=== PATIENT | female | born 1955 | race African-American/Black ===

== ENCOUNTER 2019-02-09 11:19 | Emergency (ER) | payer MEDICARE ==
--- OUTSIDE RECORDS SUMMARY | 2019-02-09 11:22 | XMS REPORT ---
:1955 [facility] [address] [place] [address] Dr. Mcintyre [address] [place] [id number] Care Team Providers Name Role Phone Unavailable Unavailable Unavailable Problems This patient has no known problems. Allergies, Adverse Reactions, Alerts This patient has no known allergies or adverse reactions. Medications This patient has no known medications.
--- NOTE | 2019-02-09 12:53 | ER ---
Nurse's Notes [facility] Name: Mel Ferrari Age: 63 yrs Sex: Female : 1955 Arrival Date: 02/09/2019 Time: 11:24 Bed 20 Private MD: Amalia Quintanilla C Diagnosis: Radiculopathy, lumbar region;Dental caries Presentation: 02/09 11:43 Presenting complaint: Patient states: left leg pain X1 week, pain radiates from back of iw thigh to knee, also is having pain to her wisdom teeth. Transition of care: patient was not received from another setting of care. Onset of symptoms was February 06, 2019. Risk Assessment: Do you want to hurt yourself or someone else? Patient reports no desire to harm self or others. Initial Sepsis Screen: Does the patient meet any 2 criteria? No. Patient's initial sepsis screen is negative. Does the patient have a suspected source of infection? No. Patient's initial sepsis screen is negative. Care prior to arrival: None. 11:43 Method Of Arrival: Wheelchair iw 11:43 Acuity: NICK 3 iw Historical: - Allergies: 11:46 PENICILLINS; iw 11:46 Sudafed; iw - PMHx: 11:46 Diabetes - NIDDM; TIA; Hypertension; iw - PSHx: 11:46 Tubal ligation; Carotid surgery; iw - Immunization history:: Adult Immunizations up to date. - Social history:: Smoking status: Patient uses tobacco products, smokes one-half pack cigarettes per day. - Ebola Screening: : Patient negative for fever greater than or equal to 101.5 degrees Fahrenheit, and additional compatible Ebola Virus Disease symptoms Patient denies exposure to infectious person Patient denies travel to an Ebola-affected area in the 21 days before illness onset No symptoms or risks identified at this time. Screenin:38 Abuse screen: Denies threats or abuse. Nutritional screening: No deficits noted. em Tuberculosis screening: No symptoms or risk factors identified. Fall Risk None identified. Assessment: 12:37 General: Appears in no apparent distress. comfortable, Behavior is calm, cooperative. em Pain: Complains of pain in left leg Pain currently is 10 out of 10 on a pain scale. Quality of pain is described as radiating. Neuro: Level of Consciousness is awake, alert, obeys commands, Oriented to person, place, time, situation. Cardiovascular: Capillary refill < 3 seconds Patient's skin is warm and dry. Respiratory: Airway is patent Respiratory effort is even, unlabored, Respiratory pattern is regular, symmetrical. EENT: Poor dentition noted. Derm: Skin is intact, is healthy with good turgor, Skin is pink, warm \T\ dry. Musculoskeletal: Capillary refill < 3 seconds, Range of motion: intact in all extremities. 12:50 Reassessment: Patient appears in no apparent distress at this time. I agree with above iw assessment by Eric Real LVN. Vital Signs: 11:47 BP 118 / 81; Pulse 76; Resp 16; Temp 98.2; Pulse Ox 98% on R/A; Weight 77.11 kg; Height iw 5 ft. 2 in. (157.48 cm); Pain 10/10; 11:47 Body Mass Index 31.09 (77.11 kg, 157.48 cm) iw ED Course: 11:24 Patient arrived in ED. mr 11:24 Amalia Quintanilla MD is Private Physician. mr 11:45 Triage completed. iw 11:47 Arm band placed on. iw 12:19 Linda Leong FNP-C is PHCP. snw 12:19 Thomas Modi MD is Attending Physician. snw 12:38 Eric Real LVN is Primary Nurse. em 12:38 Patient has correct armband on for positive identification. Placed in gown. Bed in low em position. Call light in reach. 12:49 Amalia Quintanilla MD is Referral Physician. snw 13:06 No provider procedures requiring assistance completed. Patient did not have IV access em during this emergency room visit. Administered Medications: No medications were administered Outcome: 12:52 Discharge ordered by . snw 13:06 Discharged to home ambulatory. em 13:06 Condition: good 13:06 Discharge instructions given to patient, Instructed on discharge instructions, follow up and referral plans. medication usage, Demonstrated understanding of instructions, follow-up care, medications, Prescriptions given X 1. 13:07 Patient left the ED. em Signatures: Linda Leong FNP-C COURT REPORTER-Kimberlyw Ene Gusman mr Eric Real LVN KEY ACCOUNT MANAGER em Rebecca Ramírez RN RN iw
--- NOTE | 2019-02-09 12:53 | EDPHYS ---
Physician Documentation [facility] Name: Mel Ferrari Age: 63 yrs Sex: Female : 1955 Arrival Date: 02/09/2019 Time: 11:24 Bed 20 Private MD: Amalia Quintanilla C ED Physician Thomas Modi HPI: 02/09 17:49 This 63 yrs old Black Female presents to ER via Wheelchair with complaints of Leg Pain, snw Toothache. 17:49 The patient presents with decreased range of motion, pain, that is acute. The snw complaints affect the left hip and left hamstring. Context: The problem was sustained at home, resulted from an unknown cause, the patient can fully bear weight, the patient is able to ambulate, pt states she felt increased pain while doing "diabetic exercises/stretches". Onset: The symptoms/episode began/occurred suddenly, 2 day(s) ago, and became persistent. Associated signs and symptoms: The patient has no apparent associated signs or symptoms. Treatment prior to arrival includes: no previous treatment. Severity of symptoms: At their worst the symptoms were moderate. The patient has experienced similar episodes in the past. The patient has been recently seen by a physician: the patient's primary care provider, Dr. Quintanilla. pt states Dr. Quintanilla ordered an x-ray of the lumbar spine a few weeks ago but pt is not aware of results. Pt states she has wisdom teeth "issues", pt to have extraction but needs to coordinate care secondary to chronic conditions/medications. Pt states she hurts and is out of her pain medications. Pt has been taking Ruston. Discussed triplicate status for Ruston and T#3 is strongest medication to rx from the ED. Pt states she wants the T#3. Historical: - Allergies: 11:46 PENICILLINS; iw 11:46 Sudafed; iw - PMHx: 11:46 Diabetes - NIDDM; TIA; Hypertension; iw - PSHx: 11:46 Tubal ligation; Carotid surgery; iw - Immunization history:: Adult Immunizations up to date. - Social history:: Smoking status: Patient uses tobacco products, smokes one-half pack cigarettes per day. - Ebola Screening: : Patient negative for fever greater than or equal to 101.5 degrees Fahrenheit, and additional compatible Ebola Virus Disease symptoms Patient denies exposure to infectious person Patient denies travel to an Ebola-affected area in the 21 days before illness onset No symptoms or risks identified at this time. ROS: 17:53 Constitutional: Negative for fever, chills, and weight loss, Eyes: Negative for injury, snw pain, redness, and discharge, Neck: Negative for injury, pain, and swelling, Cardiovascular: Negative for chest pain, palpitations, and edema, Respiratory: Negative for shortness of breath, cough, wheezing, and pleuritic chest pain, Abdomen/GI: Negative for abdominal pain, nausea, vomiting, diarrhea, and constipation, Back: Negative for injury and pain, : Negative for injury, bleeding, discharge, and swelling, Skin: Negative for injury, rash, and discoloration, Neuro: Negative for headache, weakness, numbness, tingling, and seizure. 17:53 ENT: Positive for Teeth pain 17:53 MS/extremity: Positive for left posterior thigh pain. Exam: 17:53 Constitutional: This is a well developed, well nourished patient who is awake, alert, snw and in no acute distress. Head/Face: Normocephalic, atraumatic. Eyes: Pupils equal round and reactive to light, extra-ocular motions intact. Lids and lashes normal. Conjunctiva and sclera are non-icteric and not injected. Cornea within normal limits. Periorbital areas with no swelling, redness, or edema. Neck: Trachea midline, no thyromegaly or masses palpated, and no cervical lymphadenopathy. Supple, full range of motion without nuchal rigidity, or vertebral point tenderness. No Meningismus. Chest/axilla: Normal chest wall appearance and motion. Nontender with no deformity. No lesions are appreciated. Cardiovascular: Regular rate and rhythm with a normal S1 and S2. No gallops, murmurs, or rubs. Normal PMI, no JVD. No pulse deficits. Respiratory: Lungs have equal breath sounds bilaterally, clear to auscultation and percussion. No rales, rhonchi or wheezes noted. No increased work of breathing, no retractions or nasal flaring. Abdomen/GI: Soft, non-tender, with normal bowel sounds. No distension or tympany. No guarding or rebound. No evidence of tenderness throughout. Back: No spinal tenderness. No costovertebral tenderness. Full range of motion. Skin: Warm, dry with normal turgor. Normal color with no rashes, no lesions, and no evidence of cellulitis. MS/ Extremity: Pulses equal, no cyanosis. Neurovascular intact. Full, normal range of motion. Neuro: Awake and alert, GCS 15, oriented to person, place, time, and situation. Cranial nerves II-XII grossly intact. Motor strength 5/5 in all extremities. Sensory grossly intact. Cerebellar exam normal. Normal gait. Psych: Awake, alert, with orientation to person, place and time. Behavior, mood, and affect are within normal limits. 17:53 ENT: Dental exam: dental caries, that is moderate, diffusely, specifically in the upper right third molar (#1), upper right second molar (#2), upper right first molar (#3), upper left first molar (#14), upper left second molar (#15), upper left third molar (#16), lower left second molar (#18) and lower right second molar (#31). Vital Signs: 11:47 BP 118 / 81; Pulse 76; Resp 16; Temp 98.2; Pulse Ox 98% on R/A; Weight 77.11 kg; Height iw 5 ft. 2 in. (157.48 cm); Pain 10/10; 11:47 Body Mass Index 31.09 (77.11 kg, 157.48 cm) iw MDM: 12:20 Patient medically screened. snw 17:56 Data reviewed: vital signs, nurses notes. Data interpreted: Pulse oximetry: on room air snw is 98 %. Interpretation: normal. Counseling: I had a detailed discussion with the patient and/or guardian regarding: the historical points, exam findings, and any diagnostic results supporting the discharge/admit diagnosis, the presence of at least one elevated blood pressure reading (>120/80) during this emergency department visit, the need for outpatient follow up, to return to the emergency department if symptoms worsen or persist or if there are any questions or concerns that arise at home. Special discussion: I have referred the patient to see his PCP for further evaluation of high blood pressure. Based on the history and exam findings, there is no indication for further emergent testing or inpatient evaluation. I discussed with the patient/guardian the need to see a dentist for further evaluation of the symptoms. I discussed with the patient/guardian the need to see the primary care provider for further evaluation of the symptoms. Administered Medications: No medications were administered Disposition: 02/09/19 12:52 Discharged to Home. Impression: Radiculopathy, lumbar region, Dental caries. - Condition is Stable. - Discharge Instructions: Dental Pain, Lumbosacral Radiculopathy, Diet and Dental Disease. - Prescriptions for Tylenol- Codeine #3 300-30 mg Oral Tablet - take 2 tablets by ORAL route every 6 hours As needed; 20 tablet. - Medication Reconciliation Form, Thank You Letter, Antibiotic Education, Prescription Opioid Use form. - Follow up: Amalia Quintanilla MD; When: 1 - 2 days; Reason: Recheck today's complaints, Continuance of care, Re-evaluation by your physician. Follow up: Emergency Department; When: As needed; Reason: Worsening of condition. Addendum: 02/11/2019 08:02 Co-signature as Attending Physician, Thomas Modi MD I agree with the assessment and k dr plan of care. Signatures: Thomas Modi MD MD [facility] Linda Leong, SPRAY GUN STRIPER-C SPRAY GUN STRIPER-Csnw Eric Real, PORTABLE TRACKMAN PORTABLE TRACKMAN em Rebecca Ramírez, RN RN iw Corrections: (The following items were deleted from the chart) 02/09 13:07 12:52 02/09/2019 12:52 Discharged to Home. Impression: Radiculopathy, lumbar region; em Dental caries. Condition is Stable. Forms are Medication Reconciliation Form, Thank You Letter, Antibiotic Education, Prescription Opioid Use. Follow up: Amalia Quintanilla; When: 1 - 2 days; Reason: Recheck today's complaints, Continuance of care, Re-evaluation by your physician. Follow up: Emergency Department; When: As needed; Reason: Worsening of condition. snw
[2019-02-09 13:13] VITALS: BP 118/81; TEMP 98.2; O2SAT 98
== END 2019-02-09 13:07 | disposition home or self-care (01) ==
LOC: ER 11:19
DX: M54.16 Radiculopathy, lumbar region (principal); K02.9 Dental caries, unspecified; Z88.0 Allergy status to penicillin; F17.210 Nicotine dependence, cigarettes, uncomplicated
CPT/HCPCS: 99282

== ENCOUNTER 2020-07-09 10:33 | Emergency (ER) | payer OTHER ==
--- OUTSIDE RECORDS SUMMARY | 2020-07-09 10:41 | XMS REPORT | Continuity of Care Document ---
:1955 Author Organization [facility] t Address [address] [place] [address] Care Team Providers Name Role Phone Doctor Unassigned, Name Attending Clinician Unavailable Gloria Rudolph Attending Clinician Problems This patient has no known problems. Allergies, Adverse Reactions, Alerts This patient has no known allergies or adverse reactions. Medications This patient has no known medications. Procedures This patient has no known procedures. Encounters Start End Encounter Admission Attending Care Care Encounter Source Date/Time Date/Time Type Type Clinicians Facility Department ID 2020-04-23 2020-04-23 Orders Doctor KEARNEY [id number] 00:00:00 00:00:00 Only Unassigned, [place] [id number] [place] [id number] 2020-03-16 2020-03-16 [facility] Paul Rudolph [facility] [id number] 13:15:00 23:59:00 Encounter J Ruby [id number] [place] [id number] [place] [id number] 2020-03-16 2020-03-16 Orders Doctor CHRISTEL [id number] 00:00:00 00:00:00 Only UnassignedCHING [id number] [place] [id number] Results This patient has no known results.
--- OUTSIDE RECORDS SUMMARY | 2020-07-09 10:41 | XMS REPORT | Summary of Care ---
:1955 Author Organization [facility] Address [address] [place] [address] Care Team Providers Name Role Phone Arcadio Quintanilla Primary Care Provider Encounter Details Date Type Department Care Team Description 04/23/2020 Orders Only [facility] Doctor Unassigned, No [address] [facility] [place] [address] [address] [place] [address] Allergies Active Allergy Reactions Severity Noted Date Comments Penicillins Rash 03/21/2012 Pseudoephedrine Hcl Swelling 12/05/2018 Sulfa (Sulfonamide Antibiotics) Rash 2 documented as of this encounter (statuses as of 04/23/2020) Medications Medication Sig Dispensed Refills Start Date End Date Status citalopram (CELEXA) 20 Take 20 mg by 0 Active mg tablet mouth daily. atorvastatin (LIPITOR) Take 1 Tab by 30 Tab 5 06/04/2012 Active 10 mg tabletIndications: mouth at HLD (hyperlipidemia) bedtime. albuterol (VENTOLIN HFA) Inhale 2 Puffs 0 Active 90 mcg/actuation inhaler every 6 (six) hours as needed. fluticasone (FLONASE) 50 Use in each 0 Active mcg/actuation nasal nostril daily. spray levocetirizine (XYZAL) 5 Take 5 mg by 0 Active mg tablet mouth every evening. clopidogrel (PLAVIX) 75 Take 1 Tab by 30 Tab 6 10/17/2012 Active mg tabletIndications: mouth daily. TIA (transient ischemic attack) losartan-hydrochlorothia Take 1 tablet by 2 11/14/19 19 Active zide 50-12.5 mg per mouth daily. tablet gabapentin 400 mg Take 400 mg by 0 Active capsule mouth 3 (three) times daily. meloxicam 7.5 mg tablet Take 7.5 mg by 0 Active mouth daily. metFORMIN 500 mg tablet Take 500 mg by 0 Active mouth 2 (two) times daily with meals. fluticasone Inhale 1 Puff 2 1 Each 11 03/14/2019 A ctive propion-salmeterol (two) times (AIRDUO RESPICLICK) daily. 113-14 mcg/actuation AePBIndications: Chronic cough documented as of this encounter (statuses as of 04/23/2020) Active Problems Problem Noted Date Carotid stenosis, symptomatic w/o infarct 01/17/2013 TIA (transient ischemic attack) 01/17/2013 Carpal tunnel syndrome 06/14/2012 Lumbago 01/17/2012 documented as of this encounter (statuses as of 04/23/2020) Immunizations Name Administration Dates Next Due Influenza Virus Vaccine Quad .5 mL IM 6+ MO 05/26/2019 documented as of this encounter Social History Tobacco Use Types Packs/Day Years Used Date Current Every Day Smoker Cigarettes 0.25 39 Smokeless Tobacco: Never Used Alcohol Use Drinks/Week oz/Week Comments No Sex Assigned at Date Recorded Not on file documented as of this encounter Last Filed Vital Signs Not on filedocumented in this encounter Plan of Treatment Health Maintenance Due Date Last Done Comments Depression Screening 1966 COLON CANCER SCREENING ANNUAL 2004 FIT/FOBT COLON CANCER SCREENING FIT 2004 DNA EVERY 3 YEARS COLON CANCER SCREENING 2004 SIGMOIDOSCOPY EVERY 5 YEARS Breast Cancer Screening 12/24/2012 12/25/2011 (MAMMOGRAM) Medicare Wellness Visit 2019 PNEUMOCOCCAL VACCINES 65+ (1 2019 of 1 - PPSV23) LUNG CANCER SCREEN: 02/13/2020 02/12/2019 Recommended for age 55-80 with 30 + pack year history INFLUENZA VACCINE (#1) 2020 05/26/2019 COLONOSCOPY 06/24/2020 Postponed from 1 10/09/2003 (Patient Does No t Have Time) Colorectal Cancer Screening 06/24/2020 Post poned from 2004 DTaP,Tdap,and Td Vaccines (1 06/24/2020 Pos tponed from 1973 - Tdap) (Patient Does No t Have Time) HEPATITIS C (HCV) SCREEN 06/24/2020 Postpon ed from 1955 (Patient Does No t Have Time) Zoster Recombinant Vaccine 06/24/2020 Postp oned from 2004 (SHINGRIX) (1 of 2) (Patient Rodríguez s Not Have Time) Osteoporosis Screening 03/04/2025 03/04/2015, 03/04/2015 documented as of this encounter Procedures Procedure Name Priority Date/Time Associated Diagnosis Comme nts EXTERNAL PROVIDER Routine 04/23/2020 12:01 AM CDT RECORDS documented in this encounter Results Not on filedocumented in this encounter Insurance Payer Benefit Plan Subscriber ID Effective Phone Address Typ e / Group Dates [facility] [id number] 2018-Pres Medica re Adv HEALTHCARE - MEDICARE ent HMO MANAGED COMPLETE MEDICARE MEDICARE MEDICARE [id number] 2011-Pres [phone] [facility] care PART A & B ent [id number] MIRANDA MONTES [phone] [facility] [id number] 2020-Pre PPO BENEFIT PLAN [place] sent documented as of this encounter Advance Directives Type Date Recorded Patient Clerical Manager Explanati on Advance Directives and Living Will Power of Construction Superintendent 03/02/2015 5:01 PM
--- NOTE | 2020-07-09 11:35 | EDPHYS ---
Physician Documentation [facility] Name: Mel Ferrari Age: 64 yrs Sex: Female : 1955 Arrival Date: 07/09/2020 Time: 10:37 Bed 16 Private MD: ED Physician Thomas Modi HPI: 07/09 11:26 This 64 yrs old Black Female presents to ER via Ambulatory with complaints of Insect cp Bite, Back Pain. 11:26 The patient presents with pain that is acute, with no known mechanism of injury. The cp symptoms are located in the left trapezius, left scapular area and left subscapular area. Onset: The symptoms/episode began/occurred 2-3 days ago. The pain does not radiate. Associated signs and symptoms: Pertinent negatives: abdominal pain, chest pain, fever, numbness, tingling, weakness. Modifying factors: The patient symptoms are alleviated by nothing, the patient symptoms are aggravated by movement, turning torso to left. Historical: - Allergies: 10:49 PENICILLINS; ss 10:49 Sudafed; ss - PMHx: 10:49 Diabetes - NIDDM; Hypertension; TIA; ss - PSHx: 10:49 Tubal ligation; Carotid surgery; ss - Immunization history:: Adult Immunizations up to date. - Social history:: Smoking status: Patient reports the use of cigarette tobacco products, 1/4 ppd. ROS: 11:27 Constitutional: Negative for body aches, chills, fever. cp 11:27 Neck: Negative for pain with movement, pain at rest, stiffness. 11:27 Cardiovascular: Negative for chest pain, palpitations. 11:27 Respiratory: Negative for cough, shortness of breath, wheezing. 11:27 Back: Positive for pain at rest, pain with movement, of the left trapezius, left scapular area and left subscapular area, Negative for injury or acute deformity. 11:27 Skin: Negative for rash. 11:27 Neuro: Negative for numbness, weakness. 11:27 All other systems are negative. Exam: 11:29 Head/Face: Normocephalic, atraumatic. cp 11:29 Constitutional: The patient appears in no acute distress, alert, awake, non-diaphoretic, non-toxic, well developed, well nourished. 11:29 Eyes: Periorbital structures: appear normal, Conjunctiva: normal, no exudate, no injection, Sclera: no appreciated abnormality, Lids and lashes: appear normal, bilaterally. 11:29 ENT: External ear(s): are unremarkable, Nose: is normal, Posterior pharynx: Airway: no evidence of obstruction, patent. 11:29 Chest/axilla: Inspection: normal. 11:29 Cardiovascular: Rate: normal, Rhythm: regular. 11:29 Respiratory: the patient does not display signs of respiratory distress, Respirations: normal, no use of accessory muscles, no retractions, labored breathing, is not present. 11:29 Abdomen/GI: Inspection: abdomen appears normal. 11:29 Back: pain, that is mild, of the left trapezius, left scapular area and left subscapular area, ROM is painful, with rotation to the left, vertebral tenderness, is not appreciated. 11:29 Skin: cellulitis, is not appreciated, no rash present. 11:29 Neuro: Orientation: to person, place \T\ time. Mentation: is normal. Vital Signs: 10:48 BP 147 / 86; Pulse 88; Resp 16; Temp 97.6(TE); Pulse Ox 98% on R/A; Weight 79.83 kg; ss Height 5 ft. 2 in. (157.48 cm); Pain 6/10; 10:48 Body Mass Index 32.19 (79.83 kg, 157.48 cm) ss MDM: 11:26 Patient medically screened. cp 11:30 Differential diagnosis: sprain, strain, herpes zoster, cellulitis, muscle spasm. cp 11:33 Data reviewed: vital signs, nurses notes. cp 11:33 Counseling: I had a detailed discussion with the patient and/or guardian regarding: the cp historical points, exam findings, and any diagnostic results supporting the discharge/admit diagnosis, to return to the emergency department if symptoms worsen or persist or if there are any questions or concerns that arise at home. Administered Medications: No medications were administered Disposition: 11:45 Chart complete. cp 14:32 Co-signature as Attending Physician, Thomas Modi MD I agree with the assessment and kdr plan of care. Disposition: 07/09/20 11:34 Discharged to Home. Impression: Strain of muscle and tendon of back wall of thorax - left. - Condition is Stable. - Discharge Instructions: Back Pain, Adult. - Prescriptions for Lidoderm 5 % Topical adhesive patch,medicated - apply 1 patch by TRANSDERMAL route once daily; 1 box. Cyclobenzaprine 10 mg Oral Tablet - take 1 tablet by ORAL route every 8 hours As needed; 20 tablet. Naprosyn 500 mg Oral Tablet - take 1 tablet by ORAL route 2 times per day take with food; 20 tablet. - Medication Reconciliation Form, Thank You Letter, Antibiotic Education, Prescription Opioid Use form. - Follow up: Private Physician; When: 2 - 3 days; Reason: Recheck today's complaints. - Problem is new. - Symptoms are unchanged. Signatures: Thomas Modi MD MD [facility] Anamaria Valenzuela RN RN ss Joey Calhoun PA PA cp Whit Torres RN RN ca1 Corrections: (The following items were deleted from the chart) 10:50 10:48 Social history: Smoking status: Patient denies any tobacco usage or history of. ssss 11:41 11:34 07/09/2020 11:34 Discharged to Home. Impression: Strain of muscle and tendon of ca1 back wall of thorax - left. Condition is Stable. Forms are Medication Reconciliation Form, Thank You Letter, Antibiotic Education, Prescription Opioid Use. Follow up: Private Physician; When: 2 - 3 days; Reason: Recheck today's complaints. Problem is new. Symptoms are unchanged. cp 07/10 09:36 07/09 11:40 Differential diagnosis: sprain, strain, herpes zoster, cellulitis, muscle cp spasm cp
--- NOTE | 2020-07-09 11:35 | ER ---
Nurse's Notes [facility] Name: Mel Ferrari Age: 64 yrs Sex: Female : 1955 Arrival Date: 07/09/2020 Time: 10:37 Bed 16 Private MD: Diagnosis: Strain of muscle and tendon of back wall of thorax-left Presentation: 07/09 10:48 Chief complaint: Patient states: possible insect bite to L upper back 2-3 days ago. Pt ss reports that since then she has been feeling a little weak. Coronavirus screen: Client denies travel out of the [place] in the last 14 days. Ebola Screen: Patient denies exposure to infectious person. Patient denies travel to an Ebola-affected area in the 21 days before illness onset. Initial Sepsis Screen: Does the patient meet any 2 criteria? No. Patient's initial sepsis screen is negative. Does the patient have a suspected source of infection? No. Patient's initial sepsis screen is negative. Risk Assessment: Do you want to hurt yourself or someone else? Patient reports no desire to harm self or others. Onset of symptoms was July 06, 2020. 10:48 Method Of Arrival: Ambulatory ss 10:48 Acuity: NICK 3 ss Historical: - Allergies: 10:49 PENICILLINS; ss 10:49 Sudafed; ss - PMHx: 10:49 Diabetes - NIDDM; Hypertension; TIA; ss - PSHx: 10:49 Tubal ligation; Carotid surgery; ss - Immunization history:: Adult Immunizations up to date. - Social history:: Smoking status: Patient reports the use of cigarette tobacco products, 1/4 ppd. Screenin:10 Abuse screen: Denies threats or abuse. Denies injuries from another. Nutritional ca1 screening: No deficits noted. Tuberculosis screening: No symptoms or risk factors identified. Fall Risk None identified. Assessment: 11:10 General: Appears in no apparent distress. comfortable, Behavior is calm, cooperative, ca1 appropriate for age. Pain: Complains of pain in left subscapular area and left scapular area and left trapezius Pain began 4 days Aggravated by repositioning. Neuro: Level of Consciousness is awake, alert, obeys commands, Oriented to person, place, time, situation, Appropriate for age. Derm: Skin is intact, is healthy with good turgor, Skin is pink, warm \T\ dry. did not notice any bite louis. Musculoskeletal: Circulation, motion, and sensation intact. Capillary refill < 3 seconds. 11:30 Reassessment: Patient appears in no apparent distress at this time. Patient is alert, ca1 oriented x 3, equal unlabored respirations, skin warm/dry/pink. Vital Signs: 10:48 BP 147 / 86; Pulse 88; Resp 16; Temp 97.6(TE); Pulse Ox 98% on R/A; Weight 79.83 kg; ss Height 5 ft. 2 in. (157.48 cm); Pain 6/10; 10:48 Body Mass Index 32.19 (79.83 kg, 157.48 cm) ED Course: 10:37 Patient arrived in ED. bp1 10:49 Triage completed. ss 10:49 Arm band placed on right wrist. ss 11:01 Whit Torres, CARRIE is Primary Nurse. ca1 11:10 Patient has correct armband on for positive identification. Bed in low position. Call ca1 light in reach. Side rails up X 1. Pulse ox on. NIBP on. Warm blanket given. 11:14 Joey Calhoun PA is PHCP. cp 11:14 Thomas Modi MD is Attending Physician. cp 11:40 No provider procedures requiring assistance completed. Patient did not have IV access ca1 during this emergency room visit. Administered Medications: No medications were administered Outcome: 11:34 Discharge ordered by MD. cp 11:40 Discharged to home ambulatory. ca1 11:40 Condition: stable 11:40 Discharge instructions given to patient, Instructed on discharge instructions, follow up and referral plans. medication usage, Demonstrated understanding of instructions, follow-up care, medications, Prescriptions given X 3. 11:41 Patient left the ED. ca1 Signatures: Anamaria Valenzuela RN RN Joey Calhoun PA PA cp Whit Torres RN RN ca1 Precious Vergara [facility] Corrections: (The following items were deleted from the chart) 10:50 10:48 Social history: Smoking status: Patient denies any tobacco usage or history of. ssss
[2020-07-09 11:45] VITALS: BP 147/86; TEMP 97.6; O2SAT 98
== END 2020-07-09 11:41 | disposition home or self-care (01) ==
LOC: ER 10:33
DX: S29.012A Strain of muscle and tendon of back wall of thorax, initial encounter (principal); I10 Essential (primary) hypertension; F17.210 Nicotine dependence, cigarettes, uncomplicated; Z88.0 Allergy status to penicillin; Z88.8 Allergy status to other drugs, medicaments and biological substances
CPT/HCPCS: 99283

== ENCOUNTER 2021-02-15 14:44 | Emergency (ER) | payer OTHER ==
--- OUTSIDE RECORDS SUMMARY | 2021-02-15 14:47 | XMS REPORT | Continuity of Care Document ---
:1955 Author Organization [facility] t Address [address] [place] [address] Care Team Providers Name Role Phone Doctor [...] ID 2020-04-23 2020-04-23 Orders Doctor KEARNEY [id number] 00:00:00 00:00:00 Only Unassigned, CHING [id number] Robert Lee [place] [id number] 2020-03-16 2020-03-16 [facility] Paul Rudolph [facility] [id number] 13:15:00 23:59:00 Encounter J Ruby [id number] [place] [id number] [place] [id number] [id number] 2020-03-16 2020-03-16 Orders Doctor CHRISTEL [id number] 00:00:00 00:00:00 Only Unassigned, CHING [id number] Robert Lee [id number] Results This patient has no known results.
[2021-02-15 20:40] LABS: Absolute Lymphocytes (CBC) 2.5 K/uL (0.7-4.9); Basophils % 1.1 % (0-1.3); Hematocrit 40.8 % (36.0-45.0); Lymphocytes % 38.1 % (15.3-44.8); MPV 8.4 fL (7.6-11.3); RBC Red Blood Cell Count 5.48 M/uL (3.86-4.86)
[2021-02-15] MEDS ORDERED: NA CHLORIDE 0.9% 1,000 ML ONE (20:55)
[2021-02-15 21:14] LABS: Magnesium 2.2 mg/dL (1.8-2.4); Potassium 3.2 mmol/L (3.5-5.1)
--- NOTE | 2021-02-15 21:52 | ER ---
Nurse's Notes [facility] Name: Mel Ferrari Age: 65 yrs Sex: Female : 1955 Arrival Date: 02/15/2021 Time: 14:47 Bed Waiting Private MD: Diagnosis: Dehydration;Hypokalemia Presentation: 02/15 15:45 Chief complaint: Patient states: Insect bite to right upper arm, seen at [facility] on jl7 Sunday, also reports feeling weak reports high BS. Coronavirus screen: Client denies travel out of the [place] in the last 14 days. At this time, the client does not indicate any symptoms associated with coronavirus-19. Ebola Screen: No symptoms or risks identified at this time. Initial Sepsis Screen: Does the patient meet any 2 criteria? No. Patient's initial sepsis screen is negative. Does the patient have a suspected source of infection? No. Patient's initial sepsis screen is negative. Risk Assessment: Do you want to hurt yourself or someone else? Patient reports no desire to harm self or others. Onset of symptoms was February 12, 2021. Care prior to arrival: None. 15:45 Method Of Arrival: Ambulatory jl7 15:45 Acuity: NICK 3 jl7 Historical: - Allergies: 15:52 PENICILLINS; jl7 15:52 Sudafed; jl7 - PMHx: 15:52 Diabetes - NIDDM; Hypertension; TIA; jl7 - PSHx: 15:52 Tubal ligation; Carotid surgery; jl7 - Immunization history:: Adult Immunizations unknown. - Social history:: Smoking status: unknown. - Family history:: not pertinent. - Hospitalizations: : No recent hospitalization is reported. Screenin:40 Abuse screen: Denies threats or abuse. Nutritional screening: No deficits noted. vg1 Tuberculosis screening: No symptoms or risk factors identified. Fall Risk No fall in past 12 months (0 pts). No secondary diagnosis (0 pts). IV access (20 points). Ambulatory Aid- None/Bed Rest/Nurse Assist (0 pts). Gait- Normal/Bed Rest/Wheelchair (0 pts) Mental Status- Oriented to own ability (0 pts). Total Calvert Fall Scale indicates No Risk (0-24 pts). Assessment: 20:33 General: Appears in no apparent distress. comfortable, Behavior is calm, cooperative. vg1 Pain: Complains of pain in right leg and left leg and lower back Pain currently is 6 out of 10 on a pain scale. Neuro: Level of Consciousness is awake, alert, obeys commands, Oriented to person, place, time, situation. Cardiovascular: Patient's skin is warm and dry. Respiratory: Airway is patent Respiratory effort is even, unlabored. GI: No signs and/or symptoms were reported involving the gastrointestinal system. : No signs and/or symptoms were reported regarding the genitourinary system. EENT: No signs and/or symptoms were reported regarding the EENT system. Derm: Skin is intact, is healthy with good turgor. Musculoskeletal: Circulation, motion, and sensation intact. 22:17 Reassessment: Patient is alert, oriented x 3, equal unlabored respirations, skin bb warm/dry/pink. pt verbalized understanding of and agrees to plan of care discharge instructions given pt ambulated with steady gait to exit. Vital Signs: 15:45 BP 122 / 70; Pulse 79; Resp 15; Temp 97.2; Pulse Ox 98% ; Weight 79.83 kg (R); jl7 20:28 BP 114 / 68; Pulse 62; Resp 15; Pulse Ox 99% on R/A; dh4 22:18 BP 127 / 72; Pulse 71; Resp 16 S; Temp 97.8(O); Pulse Ox 99% on R/A; bb ED Course: 14:47 Patient arrived in ED. ds1 15:52 Triage completed. jl7 15:52 Arm band placed on right wrist. jl7 19:55 Will Chris MD is Attending Physician. rn 20:24 Inserted saline lock: 20 gauge in left hand, using aseptic technique. Blood collected. 4 20:32 Maddie Barry, RN is Primary Nurse. vg1 20:41 Patient has correct armband on for positive identification. Pt placed in lobby in vg1 wheelchair. 22:18 IV discontinued, intact, bleeding controlled, No redness/swelling at site. Pressure bb dressing applied. 22:19 No provider procedures requiring assistance completed. bb Administered Medications: 20:37 Drug: NS 0.9% 1000 ml Route: IV; Rate: 1000 ml; Site: left hand; vg1 21:52 Follow up: IV Status: Completed infusion; IV Intake: 1000ml bb 21:53 Drug: Potassium Chloride 40 mEq Route: PO; bb Intake: 21:52 IV: 1000ml; Total: 1000ml. bb Outcome: 21:52 Discharge ordered by . rn 22:19 Discharged to home ambulatory. bb 22:19 Condition: stable 22:19 Discharge instructions given to patient, Instructed on discharge instructions, follow up and referral plans. Demonstrated understanding of instructions, follow-up care. 22:19 Patient left the ED. bb Signatures: Loni Weaver ds1 Kathia Barber RN RN bb Will Chris MD MD rn Leal, Jahala, RN RN jl7 Gabriel Felix 4 Maddie Barry, RN RN vg1
--- NOTE | 2021-02-15 21:52 | EDPHYS ---
Physician Documentation [facility] Name: Mel Ferrari Age: 65 yrs Sex: Female : 1955 Arrival Date: 02/15/2021 Time: 14:47 Bed Waiting Private MD: ED Physician Will Chris HPI: 02/15 20:29 This 65 yrs old Black Female presents to ER via Ambulatory with complaints of rn generalized weakness. 20:29 Reports generalized weakness and fatigue since colonoscopy last week, reports blood rn sugars in 200s, high 100s today, No focal weakness. No fever. Seen at [facility] recently for insect bite, given bactrim and mupirocin after "popped", and its doing better. She is not sure what is causing her weakness so came in for eval. Denies burning on urination or diarrhea.. Onset: The symptoms/episode began/occurred 5 day(s) ago. Severity of symptoms: At their worst the symptoms were mild in the emergency department the symptoms are unchanged. The patient has experienced similar episodes in the past. The patient has been recently seen by a physician:. Historical: - Allergies: 15:52 PENICILLINS; jl7 15:52 Sudafed; jl7 - PMHx: 15:52 Diabetes - NIDDM; Hypertension; TIA; jl7 - PSHx: 15:52 Tubal ligation; Carotid surgery; jl7 - Immunization history:: Adult Immunizations unknown. - Social history:: Smoking status: unknown. - Family history:: not pertinent. - Hospitalizations: : No recent hospitalization is reported. ROS: 20:29 Constitutional: Negative for fever, chills, and weight loss, Eyes: Negative for injury, rn pain, redness, and discharge, Neck: Negative for injury, pain, and swelling, Cardiovascular: Negative for chest pain, palpitations, and edema, Respiratory: Negative for shortness of breath, cough, wheezing, and pleuritic chest pain, Abdomen/GI: Negative for abdominal pain, nausea, vomiting, diarrhea, and constipation, Back: Negative for injury and pain, : Negative for injury, bleeding, discharge, and swelling, MS/Extremity: Negative for injury and deformity, Skin: Negative for injury, rash, and discoloration, Neuro: Negative for headache, numbness, tingling, and seizure. Exam: 20:29 Constitutional: This is a well developed, well nourished patient who is awake, alert, rn and in no acute distress. Ambulatory to chair. Head/Face: Normocephalic, atraumatic. Eyes: Periorbital areas with no swelling, redness, or edema. Cardiovascular: Regular rate and rhythm. No pulse deficits. Respiratory: No increased work of breathing, no retractions or nasal flaring. Abdomen/GI: soft, non-tender Skin: Warm, dry, small pustule right shoulder, no overlying erythema, no fluctuance. MS/ Extremity: Pulses equal, no cyanosis. Neurovascular intact. Full, normal range of motion. Equal circumference. Neuro: Awake and alert, GCS 15, oriented to person, place, time, and situation. Cranial nerves II-XII grossly intact. Motor strength 5/5 in all extremities. Sensory grossly intact. Vital Signs: 15:45 BP 122 / 70; Pulse 79; Resp 15; Temp 97.2; Pulse Ox 98% ; Weight 79.83 kg (R); jl7 20:28 BP 114 / 68; Pulse 62; Resp 15; Pulse Ox 99% on R/A; dh4 22:18 BP 127 / 72; Pulse 71; Resp 16 S; Temp 97.8(O); Pulse Ox 99% on R/A; bb MDM: 19:55 Patient medically screened. rn 21:51 Differential Diagnosis dehydration, hyperglycemia, electrolyte disorder. Data reviewed: rn vital signs, nurses notes, lab test result(s), and as a result, I will discharge patient. Counseling: I had a detailed discussion with the patient and/or guardian regarding: the historical points, exam findings, and any diagnostic results supporting the discharge/admit diagnosis, lab results, the need for outpatient follow up, to return to the emergency department if symptoms worsen or persist or if there are any questions or concerns that arise at home. Response to treatment: the patient's symptoms have mildly improved after treatment, and as a result, I will discharge patient. Special discussion: I discussed with the patient/guardian in detail that at this point there is no indication for admission to the hospital. It is understood, however, that if the symptoms persist or worsen the patient needs to return immediately for re-evaluation. 02/15 15:57 Order name: Glucose, Ancillary Testing; Complete Time: 19:51 EDMS 02/15 20:03 Order name: CBC with Diff; Complete Time: 21:50 rn 02/15 20:03 Order name: Basic Metabolic Panel; Complete Time: 21:50 rn 02/15 20:03 Order name: Magnesium; Complete Time: 21:50 rn 02/15 20:03 Order name: IV Start; Complete Time: 20:25 rn Administered Medications: 20:37 Drug: NS 0.9% 1000 ml Route: IV; Rate: 1000 ml; Site: left hand; vg1 21:52 Follow up: IV Status: Completed infusion; IV Intake: 1000ml 21:53 Drug: Potassium Chloride 40 mEq Route: PO; bb Disposition: 02/15/21 21:52 Discharged to Home. Impression: Dehydration, Hypokalemia. - Condition is Stable. - Discharge Instructions: Dehydration, Adult, Hypokalemia. - Medication Reconciliation Form, Thank You Letter, Antibiotic Education, Prescription Opioid Use form. - Follow up: Private Physician; When: As needed; Reason: Recheck today's complaints, Re-evaluation by your physician. - Problem is new. - Symptoms have improved. Signatures: Dispatcher [employer] EDMN Gabriele Bond PA PA jmm Ballard, Brenda RN RN bb Will Chris MD MD rn Leal, Jahala, RN RN jl7 Maddie Barry, RN RN vg1 Corrections: (The following items were deleted from the chart) 22:19 21:52 02/15/2021 21:52 Discharged to Home. Impression: Dehydration; Hypokalemia. bb Condition is Stable. Forms are Medication Reconciliation Form, Thank You Letter, Antibiotic Education, Prescription Opioid Use. Follow up: Private Physician; When: As needed; Reason: Recheck today's complaints, Re-evaluation by your physician. Problem is new. Symptoms have improved. rn
[2021-02-15] MEDS ORDERED: POTASSIUM CL SA 10 MEQ TAB PO ONE (22:15)
[2021-02-15 23:03] VITALS: O2SAT 99
[2021-02-15 23:05] VITALS: BP 127/72; TEMP 97.8
== END 2021-02-15 22:19 | disposition home or self-care (01) ==
LOC: ER 14:44
DX: E86.0 Dehydration (principal); E87.6 Hypokalemia; E11.9 Type 2 diabetes mellitus without complications; I10 Essential (primary) hypertension; Z86.73 Personal history of transient ischemic attack (TIA), and cerebral infarction without residual deficits
CPT/HCPCS: 85025; 80048; 36415; 83735; 82947; J7030; 96360; 99283

== ENCOUNTER 2023-06-19 06:30 | Day surgery (SDC) | payer OTHER ==
--- NOTE | 2023-06-15 11:46 | RAD REPORT ---
EXAM DESCRIPTION: RAD - Chest Pa And Lat (2 Views) - 06/15/2023 11:29 am CLINICAL HISTORY: pre op for [employer], hypertension, diabetes, smoker COMPARISON: Chest Pa And Lat (2 Views) dated 12/09/2020; Chest Pa And Lat (2 Views) dated 11/20/2018; C hest Single View dated 06/26/2016; CHEST PA AND LAT 2 VIEW dated 06/28/2015; CHEST SINGLE VIEW dated 05/03/2013 FINDINGS: Lines: None. Lungs: No evidence of edema or pneumonia. Pleural: No significant pleural effusions or pneumothorax. Cardiac: The heart size is within normal limits. Mediastinum: Within normal limits. Bones: No acute fractures. Other: None IMPRESSION: No acute cardiopulmonary disease.
[2023-06-15 11:54] LABS: Absolute Lymphocytes (CBC) 2.2 K/uL (0.7-4.9); Hematocrit 40.8 % (36.0-45.0); Lymphocytes % 39.2 % (15.3-44.8); MCV 73.5 fL (80-100); MPV 8.1 fL (7.6-11.3); Platelets 272 thou/uL (152-406); RBC Red Blood Cell Count 5.55 M/uL (3.86-4.86)
[2023-06-15 12:05] LABS: Protime INR 1.05
[2023-06-15 12:10] LABS: Potassium 3.5 mEq/L (3.5-5.1)
--- NOTE | 2023-06-15 14:08 | EKG ---
Test Date: 2023-06-15 Test Time: 10:58:05 Slabbing Machine Operator: MISAEL MEASUREMENT RESULTS: Intervals: Rate: 64 OH: 164 QRSD: 112 QT: 428 QTc: 441 Napoleon: P: 52 OH: 164 QRS: 0 T: 12 INTERPRETIVE STATEMENTS: Normal sinus rhythm Normal ECG Compared to ECG 06/26/2016 10:45:48 No significant changes Electronically Signed On 06-15-23 14:08:35 CDT by Javier Nieto
[2023-06-19] MEDS ORDERED: LIDOCAINE 1% 20 ML MDV ONE (06:52)
[2023-06-19] MEDS ORDERED: HEPA 1000U/500MLS 2,000 UNIT/1,000 ML BAG IV ONE (06:52)
[2023-06-19] MEDS ORDERED: FENTANYL CITR 100 MCG/2 ML ONE (06:53)
[2023-06-19] MEDS ORDERED: HEPARIN 5000 UNIT/ML 1 ML VIAL ONE (06:53)
[2023-06-19] MEDS ORDERED: MIDAZOLAM HCL 2 MG/2 ML INJ ONE (06:53)
[2023-06-19] MEDS ORDERED: VERAPAMIL HCL 10 MG/4 ML VIAL IV ONE (06:54)
[2023-06-19] MEDS ORDERED: CLOPIDOGREL 75 MG TABLET ONE (06:54)
[2023-06-19] MEDS ORDERED: HEPARIN 10,000 UNIT/10 ML VIAL IV ONE (06:54)
[2023-06-19] MEDS ORDERED: ASPIRIN 325 MG TAB ONE (06:54)
[2023-06-19] MEDS ORDERED: ATROPINE SULF 1 MG/10 ML SYR IV ONE (06:54)
[2023-06-19] MEDS ORDERED: NITROGLYCERIN 100 MCG/ML SYR (for cath lab use only) IV ONE (06:54)
[2023-06-19] MEDS ORDERED: TICAGRELOR 90 MG TABLET PO ONE (06:54)
[2023-06-19] MEDS ORDERED: NITROGLYCERIN/D5W 25 MG/250 ML BTL IV ONE (06:55)
[2023-06-19] MEDS ORDERED: NA CHLORIDE 0.9% 500 ML ONE (07:13)
--- NOTE | 2023-06-19 08:11 | OP ---
Date of Procedure: 06/19/2023 Surgeon: EDUIN FELDMAN Procedures Performed: 1.Selective coronary angiogram. 2.Left heart catheterization. Indication: Chest pain with abnormal stress test. Access: Right radial artery 6-Mozambican closed with TR band. Complications: None. Bleeding: Less than 20 mL. Anesthesia: Total sedation time was 15 minutes. Description Of Procedure: After risks, benefits and alternatives were explained, the patient agreed to procedure and signed informed consent. Patient was brought into the cardiac catheterization labor atory, prepped and draped in usual sterile fashion. Then, I accessed right radial artery using pedHyperic tric micropuncture kit, placed 6-Mozambican slender sheath and took 5-Mozambican [place] 4.0 catheter into the aortic root, engaged left main and the right coronary artery and took standard views and then the cat heter was pushed over the wire into the LV, measured the LVEDP, pullback did not record any gradient and then removed the catheter and the sheath and placed TR band with good hemostasis. Findings: 1.Left main; large and normal. 2.LAD normal. Moderate-size vessel, normal diagonal branches. 3.Left circumflex is moderate size with ostial 50% stenosis. The rest of the artery is normal. 4.RCA, moderate size and normal. It is dominant. 5.LVEDP normal at 10 mmHg. Conclusion: 1.Moderate nonobstructive coronary artery disease involving mainly left circumflex. 2.Normal LVEDP. Recommendation: Medical management. SR/MODL Voice ID: [id number] Report ID: [id number]
[2023-06-19 09:20] VITALS: O2SAT 95
[2023-06-19 09:43] VITALS: BP 120/65
== END 2023-06-19 09:48 | disposition home or self-care (01) ==
LOC: CCL 06:30
PROVIDERS: ATTEND Internal Medicine
PROC: 4A023N7 Measurement of Cardiac Sampling and Pressure, Left Heart, Percutaneous Approach (ICD-10-PCS; principal; 2023-06-19)
PROC: B2111ZZ Fluoroscopy of Multiple Coronary Arteries using Low Osmolar Contrast (ICD-10-PCS; 2023-06-19)
DX: I25.10 Atherosclerotic heart disease of native coronary artery without angina pectoris (principal); I70.223 Atherosclerosis of native arteries of extremities with rest pain, bilateral legs; I65.23 Occlusion and stenosis of bilateral carotid arteries; I10 Essential (primary) hypertension; E78.2 Mixed hyperlipidemia; Z87.891 Personal history of nicotine dependence; Z79.899 Other long term (current) drug therapy; Z88.0 Allergy status to penicillin; Z88.2 Allergy status to sulfonamides; Z88.8 Allergy status to other drugs, medicaments and biological substances; Z82.49 Family history of ischemic heart disease and other diseases of the circulatory system
CPT/HCPCS: 93005; 85025; 80048; 36415; 83721; 85610; 85730; 71046; 93458; J1644; J2001; J2250; J3010; J7040; 76937; C1893; J0461; Q9966